=== PATIENT | female | born 1945 | race Two or more races ===

== ENCOUNTER 2020-02-21 15:35 | Emergency (ER) | payer MEDICARE, MEDICAID ==
[~2020-02-21] VITALS: Ht 160 cm; Wt 76.0 kg
[2020-02-21 18:10] LABS: CLARITY URINE CLEAR (CLEAR); COLOR URINE YELLOW (YELLOW); KETONES URINE NEGATIVE (NEGATIVE); LEUKOCYTE ESTERASE URINE NEGATIVE (NEGATIVE); NITRITE URINE NEGATIVE (NEGATIVE); OCCULT BLOOD URINE NEGATIVE (NEGATIVE); PH URINE 6.5 (4.5-8.0); PROTEIN URINE NEGATIVE (NEGATIVE); SPECIFIC GRAVITY URINE 1.007 (1.005-1.030); UROBILINOGEN URINE 0.2 E.U./dL (0.2-1.0)
[2020-02-21] MEDS ORDERED: KETOROLAC 60MG/2ML VIAL IM ONE (18:45)
[2020-02-21 19:14] VITALS: BP 142/63
== END 2020-02-21 19:28 | disposition home or self-care (01) ==
LOC: ER 15:35
DX: M54.16 Radiculopathy, lumbar region (principal); I10 Essential (primary) hypertension; H40.9 Unspecified glaucoma; M25.559 Pain in unspecified hip; K63.5 Polyp of colon; Z98.890 Other specified postprocedural states
CPT/HCPCS: 81003; 96372; 99283; J1885